=== PATIENT | female | born 1975 | race Caucasian/White ===

== ENCOUNTER 2023-05-15 06:38 | Emergency (ER) | payer BC, OTHER ==
[2023-05-15] MEDS ORDERED: Ketorolac Tromethamine 30 MG (1 mL) VIAL ONE (07:50)
[2023-05-15 07:57] LABS: Influenza A by NAA DETECTED (NotDetected); Influenza B by NAA Not Detected (NotDetected); SARS-CoV-2 NAA Rapid Test Not Detected (NotDetected)
[2023-05-15 08:01] LABS: #Basophils 0.1 thou/uL (0.0-0.2); #Eosinphils 0.1 thou/uL (0.0-0.7); #Monocytes 0.6 thou/uL (0.11-0.59); #Neutrophils 8.4 thou/uL (1.40-6.50); %Basophils 0.5 % (0.0-1.0); %Eosinophils 0.7 % (0.0-10.0); %Lymphocytes 16.7 % (21.0-51.0); %Neutrophils 75.9 % (42.0-75.0); Hematocrit 39.4 % (36.0-47.0); Hemoglobin 12.8 g/dL (12.0-16.0); Mean Corpuscular HGB CONC 32.5 g/dL (32.0-36.0); Mean Corpuscular Hemoglobin 28.7 pg (27.0-31.0); Mean Corpuscular Volume 88.3 fl (78.0-98.0); Platelet Count 291 10x3/uL (130-400); Red Blood Cell (RBC) Count 4.46 mill/uL (4.20-5.40)
[2023-05-15 08:15] LABS: ALT (SGPT) 37 U/L (8-55); AST (SGOT) 18 U/L (5-34); Albumin 4.2 g/dL (3.5-5.0); Alkaline Phosphatase 181 U/L (40-110); Anion Gap 17 mmol/L (10-20); BUN (Urea Nitrogen) 13 mg/dL (7.0-18.7); Bilirubin, Total 0.3 mg/dL (0.2-1.2); Calc. Creatinine Clearance 0 mL/min (70-130); Calcium 9.6 mg/dL (7.8-10.44); Carbon Dioxide 22 mmol/L (22-29); Chloride 107 mmol/L (98-107); Estimated GFR 67; Globulin 4.1 g/dL (2.4-3.5); Glucose 129 mg/dL (70-105); Potassium 4.6 mmol/L (3.5-5.1); Protein, Total 8.3 g/dL (6.0-8.3); Sodium 141 mmol/L (136-145)
[2023-05-15] MEDS ORDERED: Ipratropium/Albuterol 3 ML NEB ONE ×2 (08:42→09:00)
== END 2023-05-15 10:52 | disposition home or self-care (01) ==
LOC: ERS 06:38
DX: J18.9 Pneumonia, unspecified organism (principal); J45.21 Mild intermittent asthma with (acute) exacerbation; J10.1 Influenza due to other identified influenza virus with other respiratory manifestations; I10 Essential (primary) hypertension; E11.9 Type 2 diabetes mellitus without complications; Z79.84 Long term (current) use of oral hypoglycemic drugs; Z79.899 Other long term (current) drug therapy
CPT/HCPCS: 36415; 71045; 80053; 83605; 85025; 96374; J1885; J7620